=== PATIENT | male | born 1975 | race African-American/Black ===

== ENCOUNTER 2017-02-11 16:31 | Emergency (ER) | payer OTHER ==
[~2017-02-11] VITALS: Ht 373.4 cm; Wt 88.6 kg
[~2017-02-11 16:31] MED LIST: INDOCIN25 MG PO; LITHIUM CARBON300 M2 PO; MELOXICAM15 MG PO; MOTRIN600 MG PO; OXY; OXYCODONE HCL10 MG PO; PEN-VEE K,VEET500 MG PO; PERCOCET 5/31 TABLET PO; ULTRAM50 MG PO
[2017-02-11 18:17] VITALS: BP 144/98
== END 2017-02-11 18:22 | disposition home or self-care (01) ==
LOC: EME 16:31
DX: S93.601A Unspecified sprain of right foot, initial encounter (principal); X58.XXXA Exposure to other specified factors, initial encounter
CPT/HCPCS: 73630; 99281; 99284